=== PATIENT | female | born 1990 | race Caucasian/White ===

== ENCOUNTER → 2017-11-08 | Outpatient (CLI) | payer OTHER ==
[~2017-11-08] MED LIST: ALBU90OI61 INH; BIRTH CONTROL PO; Bactrim Ds Tab1 EACH PO; CEPH500 PO; CYCL10 PO; Cleocin HCl150 MG PO; Cleocin HCl300 MG PO; Crutch1 EACH MISC; Cyclobenzaprine5 MG PO; GUAI600T33 PO; HYDACE5 PO; HYDACE5325 PO; HYDR1TAB94 PO; IBUP800 PO; Keflex500 MG PO; METPRE4DP PO; NAPR500 PO; NIFE60ER PO; Naprosyn500 MG PO; Norco 5-325 Ta1 EACH PO; OXYACE5T PO; PERM5TC TOP; PROM25 PO; Percocet 5-3251 EACH PO; Pyridium100 MG PO; RXCYCL10 PO; RXHYDACE PO; RXTRAM50 PO; TRAM50 PO; Ultram50 MG PO; Verotin-Gr Cap1 EACH; Zofran Odt4 MG SL
== END ==
LOC: LAB 16:48
PROVIDERS: Registered Nurse Community Health
DX: Z34.83 Encounter for supervision of other normal pregnancy, third trimester (principal)
CPT/HCPCS: 82731

== ENCOUNTER → 2017-12-05 | Outpatient (CLI) | payer OTHER | LOC: LAB 11:32 → LAB SHORT 11:32 | DX: Z34.83 Encounter for supervision of other normal pregnancy, third trimester (principal) | CPT/HCPCS: 87081; 87653 ==

== ENCOUNTER 2017-12-29 08:04 | Inpatient (IN) | payer OTHER ==
[~2017-12-29] VITALS: Ht 167.6 cm; Wt 146.0 kg
[~2017-12-29 08:04] MED LIST changes: -NIFE60ER PO
[2017-12-29 10:04] LABS: BASOPHILS ABSOLUTE AUTO 0.03 K/mm3 (0.00-0.23); BASOPHILS PERCENT AUTO 0 % (0-2); EOSINOPHILS ABSOLUTE AUTO 0.25 K/mm3 (0.00-0.68); EOSINOPHILS PERCENT AUTO 2 % (0-6); Hematocrit 38.6 % (33.0-51.0); Hemoglobin 13.1 g/dL (11.5-16.0); IMMATURE GRAN ABSOLUTE AUTO 0.09 K/mm3 (0.00-0.10); IMMATURE GRAN PERCENT AUTO 1 % (0-1); LYMPHOCYTES ABSOLUTE AUTO 1.92 K/mm3 (0.84-5.20); LYMPHOCYTES PERCENT AUTO 12 % (21-46); MONOCYTES ABSOLUTE AUTO 0.77 K/mm3 (0.16-1.47); MONOCYTES PERCENT AUTO 5 % (4-13); Mean Corpuscular HGB 28.3 pg (26.0-34.0); Mean Corpuscular HGB Conc 33.9 g/dL (31.5-36.5); Mean Corpuscular Volume 83 fL (80-100); NEUTROPHILS ABSOLUTE AUTO 12.92 K/mm3 (1.96-9.15); NEUTROPHILS PERCENT AUTO 81 % (41-73); Platelet Count 317 K/mm3 (150-400); RDW Coefficient Variation 14.3 % (11.7-14.2); RDW Standard Deviation 43.2 fL (35.1-46.3); Red Blood Cell Count 4.63 M/mm3 (3.80-5.20); White Blood Cell Count 15.98 K/mm3 (4.00-11.30)
[2017-12-29] MEDS ORDERED: NIFE60ER PO (10:06)
[2017-12-30 06:11] LABS: BASOPHILS ABSOLUTE AUTO 0.03 K/mm3 (0.00-0.23); BASOPHILS PERCENT AUTO 0 % (0-2); EOSINOPHILS ABSOLUTE AUTO 0.24 K/mm3 (0.00-0.68); EOSINOPHILS PERCENT AUTO 1 % (0-6); Hematocrit 34.4 % (33.0-51.0); Hemoglobin 11.7 g/dL (11.5-16.0); IMMATURE GRAN ABSOLUTE AUTO 0.12 K/mm3 (0.00-0.10); IMMATURE GRAN PERCENT AUTO 1 % (0-1); LYMPHOCYTES ABSOLUTE AUTO 2.71 K/mm3 (0.84-5.20); LYMPHOCYTES PERCENT AUTO 15 % (21-46); MONOCYTES ABSOLUTE AUTO 0.76 K/mm3 (0.16-1.47); MONOCYTES PERCENT AUTO 4 % (4-13); Mean Corpuscular HGB 28.7 pg (26.0-34.0); Mean Corpuscular Volume 84 fL (80-100); NEUTROPHILS ABSOLUTE AUTO 13.83 K/mm3 (1.96-9.15); NEUTROPHILS PERCENT AUTO 78 % (41-73); Platelet Count 277 K/mm3 (150-400); RDW Coefficient Variation 14.5 % (11.7-14.2); RDW Standard Deviation 43.8 fL (35.1-46.3); Red Blood Cell Count 4.08 M/mm3 (3.80-5.20); White Blood Cell Count 17.69 K/mm3 (4.00-11.30)
[2017-12-30] MEDS ORDERED: IBUP800 PO (15:06)
== END 2017-12-30 15:28 | disposition home or self-care (01) | DRG 775 ==
LOC: BC 08:04 → OBS 09:37 → BC 09:38
PROVIDERS: Nurse Practitioner Obstetrics & Gynecology
PROC: 10E0XZZ Delivery of Products of Conception, External Approach (ICD-10-PCS; principal; 2017-12-29)
PROC: 10907ZC Drainage of Amniotic Fluid, Therapeutic from Products of Conception, Via Natural or Artificial Opening (ICD-10-PCS; 2017-12-29)
DX: O99.824 Streptococcus B carrier state complicating childbirth (principal); Z68.43 Body mass index [BMI] 50.0-59.9, adult; E66.01 Morbid (severe) obesity due to excess calories; O99.214 Obesity complicating childbirth; O16.4 Unspecified maternal hypertension, complicating childbirth; O99.334 Smoking (tobacco) complicating childbirth; F17.210 Nicotine dependence, cigarettes, uncomplicated; Z3A.38 38 weeks gestation of pregnancy; Z37.0 Single live birth; Z88.0 Allergy status to penicillin; Z88.6 Allergy status to analgesic agent; Z91.030 Bee allergy status
CPT/HCPCS: 36415; 51702; 59025; 81003; 85025; 85460; 90732; 96372; J0694; J1885; J2210; J2590; J2790; J7120

== ENCOUNTER 2019-12-03 13:40 | Emergency (ER) | payer OTHER ==
[~2019-12-03] VITALS: Ht 167.6 cm; Wt 140.6 kg
[~2019-12-03 13:40] MED LIST changes: +NIFE60ER PO
[2019-12-03] MEDS ORDERED: QUETIAPINE FUMA50 MG PO (15:59)
[2019-12-03] MEDS ORDERED: LORAZEPAM0.5 MG PO (15:59)
[2019-12-03] MEDS ORDERED: KETO10 PO (16:32)
== END 2019-12-03 17:03 | disposition home or self-care (01) ==
LOC: ER 13:40
DX: M94.0 Chondrocostal junction syndrome [Tietze] (principal)
CPT/HCPCS: 71046; 96372; 99284-25; J1885

== ENCOUNTER 2022-09-05 13:31 | Emergency (ER) | payer OTHER ==
[~2022-09-05] VITALS: Ht 167.6 cm; Wt 113.4 kg
[~2022-09-05 13:31] MED LIST changes: +KETO10 PO; +LORAZEPAM0.5 MG PO; +QUETIAPINE FUMA50 MG PO; +XANAX0.25 MG PO
[2022-09-05] MEDS ORDERED: LAMO100 PO (17:14)
[2022-09-05] MEDS ORDERED: BUPR100 PO (17:14)
[2022-09-05] MEDS ORDERED: Cyclobenzaprine5 MG PO (17:15)
== END 2022-09-05 17:27 | disposition home or self-care (01) ==
LOC: ER 13:31
DX: M25.561 Pain in right knee (principal); I10 Essential (primary) hypertension; W01.0XXA Fall on same level from slipping, tripping and stumbling without subsequent striking against object, initial encounter; Z91.030 Bee allergy status; Z88.0 Allergy status to penicillin; Z88.6 Allergy status to analgesic agent; Z88.8 Allergy status to other drugs, medicaments and biological substances; Z79.899 Other long term (current) drug therapy
CPT/HCPCS: 73562-RT; J1885

== ENCOUNTER 2023-02-18 19:28 | Emergency (ER) | payer OTHER ==
[~2023-02-18] VITALS: Ht 157.5 cm; Wt 131.5 kg
[~2023-02-18 19:28] MED LIST changes: +BUPR100 PO; +LAMO100 PO; +ONDA4ODT MM; +PROC5 PO
[2023-02-18 19:41] VITALS: BP 123/81
[2023-02-18] MEDS ORDERED: CRUTCH4 XX (20:13)
== END 2023-02-18 20:20 | disposition home or self-care (01) ==
LOC: ER 19:28
DX: M25.561 Pain in right knee (principal); I10 Essential (primary) hypertension; Z91.038 Other insect allergy status; Z88.8 Allergy status to other drugs, medicaments and biological substances; Z88.0 Allergy status to penicillin; Z88.6 Allergy status to analgesic agent
CPT/HCPCS: 29505; 96372-59; 99283-25; J1885

== ENCOUNTER → 2023-06-21 | Outpatient (CLI) | payer OTHER ==
[~2023-06-21] MED LIST changes: +CRUTCH4 XX; +Roxicodone5 MG PO
== END ==
LOC: LAB 10:59 → LAB SHORT 10:59
DX: R30.0 Dysuria (principal)
CPT/HCPCS: 87086

== ENCOUNTER 2025-10-02 08:57 | Day surgery (SDC) | payer OTHER ==
[2025-10-02] VITALS (9 sets, daily range): BP systolic 119–139; BP diastolic 71–107
[~2025-10-02] VITALS: Ht 167.6 cm; Wt 145.8 kg
[~2025-10-02 08:57] MED LIST changes: +ABILIFY MYCITE10 M2 PO; +ALPR.5 PO; +BACL10 PO; +Chantix1 MG PO; +MEDROXYPRO150 MG/1 M IM; +OXAYDO5 M2 PO; +OZEMPIC2 MG/0.75 SC; +Seroquel Xr50 MG PO; +VRAYLAR4.5 MG PO
--- NOTE | 2025-10-02 11:17 | NUR ---
Pre-Op teaching done. Pt verbalizes understanding. Ambulatory in Day [facility]. History, Chart, Medications and Allergies reviewed before start of procedure. Patient States Post-Procedure ride home has been arranged. STATES SHE HAS BEEN SIPPING WATER ALL DAY, SHE WAS TOLD THAT IS OK TO DRINK CLEAR LIQUIDS. NPO FROM WATER AT 1030.
[2025-10-02] MEDS ORDERED: Ondansetron HCl 2 MG / ML 2ML Vial ONE ×2 (11:18→13:35)
[2025-10-02] MEDS ORDERED: Dexamethasone Sod Phos 10 MG/ML 1ML VIAL ONE ×2 (11:18→13:35)
[2025-10-02] MEDS ORDERED: FentaNYL Citrate 50 MCG/ML 2 ML Injection ONE ×2 (11:19→13:14)
[2025-10-02] MEDS ORDERED: Midazolam HCl 1MG / ML 2ML Vial ONE (11:19)
[2025-10-02] MEDS ORDERED: Rocuronium Bromide 10 MG/ML 5ML Injection IV ONE (11:20)
--- NOTE | 2025-10-02 12:22 | NUR ---
PATIENT UNABLE TO VOID, BLOOD DRAWN AND SENT TO LAB FOR HCG.
[2025-10-02] MEDS ORDERED: Sugammadex Sodium 200 MG/2ML SDV (100 MG/ML) ONE (12:38)
[2025-10-02] MEDS ORDERED: Bupivacaine 0.5% HCl 5 MG/ML 30MLVIAL ONE (12:45)
[2025-10-02] MEDS ORDERED: Labetalol HCL 5 MG/ML 4ML Injection (Single Dose) ONE (13:34)
--- NOTE | 2025-10-02 13:48 | NUR ---
10/02/25 [id number] [address] NOTED OPEN WOUND ON LEFT LOWER ABD PRIOR TO PROCEDURE. PROVIDER AWARE.
[2025-10-02] MEDS ORDERED: OxyCODONE 5 mg/Acetamin 325 mg TABLET PO PRN (15:05)
--- NOTE | 2025-10-02 15:28 | NUR ---
Discharge instructions reviewed with patient. Patient verbalizes understanding. Copy given to patient to take home. Dressings intact, little bit of blood in umbilical port site. Scant bleeding on chris-pad. Extra chris-pads provided to pt. Prescriptions already picked up by pt. Patient States Post-Procedure ride home has been arranged. Discharged via wheelchair to private car for ride home.
== END 2025-10-02 15:35 | disposition home or self-care (01) ==
LOC: ORSCMMR 08:57 → ORSCSDS 12:30 → ORSCMMR 12:30 → ORD 12:30 → ORSCMMR 15:35
PROVIDERS: Obstetrics & Gynecology
PROC: 0UT78ZZ Resection of Bilateral Fallopian Tubes, Via Natural or Artificial Opening Endoscopic (ICD-10-PCS; principal; 2025-10-02 12:30)
DX: Z30.2 Encounter for sterilization (principal); E66.01 Morbid (severe) obesity due to excess calories; Z68.43 Body mass index [BMI] 50.0-59.9, adult; F31.9 Bipolar disorder, unspecified; Z79.899 Other long term (current) drug therapy
CPT/HCPCS: 84703; 88302; A9270; J1100; J2250; J2405; J2704; J3010; J7120; J7297